=== PATIENT | male | born 1960 | race Caucasian/White ===

== ENCOUNTER 2016-04-22 07:26 | Day surgery (SDC) | payer OTHER ==
[~2016-04-22] VITALS: Ht 167.6 cm; Wt 74.5 kg
[~2016-04-22 07:26] MED LIST: LORCET PLUS 7.1 EACH PO; PROVENTIL,VENTOL2 MG PO; STIOLTO RESPIMAT4 GM IH; SYMBICORT60 INHALAT IH; VOLTAREN75 MG PO
[2016-04-22 08:13] VITALS: BP 139/74
[2016-04-22] MEDS ORDERED: NORCO 5/3251 TABLET PO (11:26)
[2016-04-22 12:06] VITALS: BP 135/82
[2016-04-22 12:40] VITALS: BP 138/82
[2016-04-22 13:07] VITALS: BP 134/86
== END 2016-04-22 13:25 | disposition home or self-care (01) ==
LOC: SDC 07:26
DX: K42.0 Umbilical hernia with obstruction, without gangrene (principal); J44.9 Chronic obstructive pulmonary disease, unspecified; Z79.51 Long term (current) use of inhaled steroids
CPT/HCPCS: C1781; J0690; J1100; J2250; J2405; J3010; S0020